=== PATIENT | male | born 1955 | race African-American/Black ===

== ENCOUNTER 2023-09-15 20:26 | Emergency (ER) | payer OTHER ==
[2023-09-15] MEDS ORDERED: Proparacaine 0.5% Ophth Soln 15 ML Bottle EYEBOTH ONE (21:01)
[2023-09-15] MEDS ORDERED: Ketorolac 0.5% Ophth Soln 5 ML Bottle EYELF SCH (21:45)
[2023-09-15] MEDS ORDERED: Ketorolac 0.5% Ophth Soln 5 ML Bottle EYEBOTH ONE (21:45)
== END 2023-09-15 22:20 | disposition home or self-care (01) ==
LOC: JD.ED 20:26
DX: H10.13 Acute atopic conjunctivitis, bilateral (principal); Z88.5 Allergy status to narcotic agent
CPT/HCPCS: 99283; A9270; 99282; J3490